=== PATIENT | female | born 1970 | race Asian ===

== ENCOUNTER 2022-05-08 11:07 | Emergency (ER) | payer MEDICAID ==
[~2022-05-08] VITALS: Ht 165.1 cm; Wt 63.5 kg
[2022-05-08 11:09] VITALS: BP 107/68
--- NOTE | 2022-05-08 11:50 | NUR ---
Patient discharged to home in stable condition. Written and verbal after care instructions given. Patient verbalizes understanding of instruction.
== END 2022-05-08 11:51 | disposition home or self-care (01) ==
LOC: ER 11:21
DX: Z77.120 Contact with and (suspected) exposure to mold (toxic) (principal); Z91.011 Allergy to milk products

== ENCOUNTER 2022-05-16 13:03 | Emergency (ER) | payer MEDICAID ==
[~2022-05-16] VITALS: Ht 165.1 cm; Wt 68.0 kg
[2022-05-16 13:09] VITALS: BP 121/71
--- NOTE | 2022-05-16 13:45 | NUR ---
BIBS C/O MENDOZA,CHILLS, COUGH&NAUSEA x 5DAYS "POSSIBLY EXPOSED TO WATER PIPE MOLD". AMBULATORY, PLACED ON BED, AAOX4.
--- NOTE | 2022-05-16 14:00 | NUR ---
AT BED SIDE
[2022-05-16] MEDS ORDERED: GUAI120L56 PO (14:34)
--- NOTE | 2022-05-16 14:35 | NUR ---
PATIENT REFUSED X-RAY AND COVID19 EXAM DR CONNOR AWARE
--- NOTE | 2022-05-16 14:45 | NUR ---
Patient discharged to home in stable condition. Written and verbal after care instructions given. Patient verbalizes understanding of instruction.
== END 2022-05-16 14:45 | disposition home or self-care (01) ==
LOC: ER 13:13
DX: J06.9 Acute upper respiratory infection, unspecified (principal); Z91.011 Allergy to milk products
CPT/HCPCS: 84703-TC